=== PATIENT | female | born 1985 | race Caucasian/White ===

== ENCOUNTER 2020-07-28 12:07 | Emergency (ER) | payer OTHER ==
[2020-07-28] MEDS ORDERED: SODIUM CHLORIDE 0.9% 1,000 ML IV ONE (12:36)
--- NOTE | 2020-07-28 12:39 | ED ---
General Adult HPI - General Chief complaint: Vaginal Bleeding Stated complaint: , bleeding Time Seen by Provider: 07/28/20 12:29 Source: patient, family, RN notes reviewed Mode of arrival: ambulatory Limitations: no limitations - History of Present Illness Initial comments: 35-year-old female presents to the emergency room for a chief complaint of vaginal bleeding. Patient is a female with history of miscarriage 2 years ago. Patient reports that she believes she is 10 weeks . Her last period was May 16 and she had a positive test on July 14. Patient reports everything had been going well until today when she woke up and had some light spotting and light cramping in the lower abdomen. Patient states she became concerned she could be miscarrying. She denies any severe abdominal pain. Patient has not had an ultrasound as of yet. Patient has no other complaints at this time including shortness of breath, chest pain, abdominal pain, nausea or vomiting, headache, or visual changes. - Related Data Home Medications Medication Instructions Recorded Confirmed Ibuprofen [Motrin] 600 mg PO Q6H PRN 07/28/20 07/28/20 Allergies Allergy/AdvReac Type Severity Reaction Status Date / Time No Known Allergies Allergy Verified 07/28/20 13:35 Review of Systems ROS Statement: Those systems with pertinent positive or pertinent negative responses have been documented in the HPI. ROS Other: All systems not noted in ROS Statement are negative. Past Medical History Past Medical History: No Reported History History of Any Multi-Drug Resistant Organisms: None Reported Past Surgical History: No Surgical Hx Reported Past Psychological History: No Psychological Hx Reported Smoking Status: Current every day smoker Past Alcohol Use History: None Reported Past Drug Use History: None Reported General Exam Limitations: no limitations General appearance: alert, in no apparent distress Head exam: Present: atraumatic, normocephalic, normal inspection Eye exam: Present: normal appearance, PERRL, EOMI. Absent: scleral icterus, conjunctival injection, periorbital swelling ENT exam: Present: normal exam, mucous membranes moist Neck exam: Present: normal inspection, full ROM. Absent: tenderness, meningismus, lymphadenopathy Respiratory exam: Present: normal lung sounds bilaterally. Absent: respiratory distress, wheezes, rales, rhonchi, stridor Cardiovascular Exam: Present: regular rate, normal rhythm, normal heart sounds. Absent: systolic murmur, diastolic murmur, rubs, gallop, clicks GI/Abdominal exam: Present: soft, normal bowel sounds. Absent: distended, tenderness, guarding, rebound, rigid Neurological exam: Present: alert Course Vital Signs 07/28/20 12:20 Temperature 97 F L Pulse Rate 77 Respiratory 16 Rate Blood Pressure 110/65 O2 Sat by Pulse 100 Oximetry Medical Decision Making - Medical Decision Making Vitals are stable. CBC does show mild anemia however patient reports she has a history of this. She is unsure what her normal hemoglobin is. CMP unremarkable. Urinalysis unremarkable. Patient does have an hCG elevated at 36,000. However ultrasound does not reveal intrauterine . Pelvic exam did not reveal any adnexal or uterine tenderness. Patient has a history of molar . Patient does not have [employer] follow-up. Dr. Flynn spoke with Dr. Sharp, on-call [employer], who will be seeing the patient in the ER today. There is a yolk sac upon review, and Dr. Sharp recommends repeating hCG in 2 days and seeing her in the office on Monday. I did give miscarriage precautions. Recommended she return for any worsening symptoms which she is agreeable to. - Lab Data Result diagrams: 07/28/20 12:48 07/28/20 12:48 Lab Results 07/28/20 07/28/20 07/28/20 Range/Units 12:48 12:48 12:48 WBC 9.7 (3.8-10.6) k/uL RBC 3.47 L (3.80-5.40) m/uL Hgb 9.4 L (11.4-16.0) gm/dL Hct 28.9 L (34.0-46.0) % MCV 83.4 (80.0-100.0) fL MCH 27.1 (25.0-35.0) pg MCHC 32.5 (31.0-37.0) g/dL RDW 16.7 H (11.5-15.5) % Plt Count 415 (150-450) k/uL MPV 7.5 Neutrophils % 64 % Lymphocytes % 27 % Monocytes % 6 % Eosinophils % 1 % Basophils % 0 % Neutrophils # 6.2 (1.3-7.7) k/uL Lymphocytes # 2.6 (1.0-4.8) k/uL Monocytes # 0.6 (0-1.0) k/uL Eosinophils # 0.1 (0-0.7) k/uL Basophils # 0.0 (0-0.2) k/uL Anisocytosis Slight Sodium 137 (137-145) mmol/L Potassium 3.8 (3.5-5.1) mmol/L Chloride 104 (98-107) mmol/L Carbon Dioxide 27 (22-30) mmol/L Anion Gap 6 mmol/L BUN 14 (7-17) mg/dL Creatinine 0.56 (0.52-1.04) mg/dL Est GFR (CKD-EPI)AfAm >90 (>60 ml/min/1.73 sqM) Est GFR (CKD-EPI)NonAf >90 (>60 ml/min/1.73 sqM) Glucose 116 H (74-99) mg/dL Calcium 9.6 (8.4-10.2) mg/dL Total Bilirubin 0.2 (0.2-1.3) mg/dL AST 21 (14-36) U/L ALT 14 (4-34) U/L Alkaline Phosphatase 56 (38-126) U/L Total Protein 6.4 (6.3-8.2) g/dL Albumin 3.7 (3.5-5.0) g/dL HCG, Quant 50790.5 mIU/mL Urine Color Urine Appearance (Clear) Urine pH (5.0-8.0) Ur Specific [place] (1.001-1.035) Urine Protein (Negative) Urine Glucose (UA) (Negative) Urine Ketones (Negative) Urine Blood (Negative) Urine Nitrite (Negative) Urine Bilirubin (Negative) Urine Urobilinogen (<2.0) mg/dL Ur Leukocyte Esterase (Negative) Urine RBC (0-5) /hpf Urine WBC (0-5) /hpf Ur Squamous Epith Cells (0-4) /hpf Amorphous Sediment (None) /hpf Urine Bacteria (None) /hpf Trichomonas Ag (Rapid) (Negative) Blood Type O Positive Blood Type Recheck No Previous Record Bld Type Recheck Status [facility] ONLY 07/28/20 07/28/20 Range/Units 13:56 16:23 WBC (3.8-10.6) k/uL RBC (3.80-5.40) m/uL Hgb (11.4-16.0) gm/dL Hct (34.0-46.0) % MCV (80.0-100.0) fL MCH (25.0-35.0) pg MCHC (31.0-37.0) g/dL RDW (11.5-15.5) % Plt Count (150-450) k/uL MPV Neutrophils % % Lymphocytes % % Monocytes % % Eosinophils % % Basophils % % Neutrophils # (1.3-7.7) k/uL Lymphocytes # (1.0-4.8) k/uL Monocytes # (0-1.0) k/uL Eosinophils # (0-0.7) k/uL Basophils # (0-0.2) k/uL Anisocytosis Sodium (137-145) mmol/L Potassium (3.5-5.1) mmol/L Chloride (98-107) mmol/L Carbon Dioxide (22-30) mmol/L Anion Gap mmol/L BUN (7-17) mg/dL Creatinine (0.52-1.04) mg/dL Est GFR (CKD-EPI)AfAm (>60 ml/min/1.73 sqM) Est GFR (CKD-EPI)NonAf (>60 ml/min/1.73 sqM) Glucose (74-99) mg/dL Calcium (8.4-10.2) mg/dL Total Bilirubin (0.2-1.3) mg/dL AST (14-36) U/L ALT (4-34) U/L Alkaline Phosphatase (38-126) U/L Total Protein (6.3-8.2) g/dL Albumin (3.5-5.0) g/dL HCG, Quant mIU/mL Urine Color Light Yellow Urine Appearance Cloudy H (Clear) Urine pH 8.0 (5.0-8.0) Ur Specific [place] 1.010 (1.001-1.035) Urine Protein Negative (Negative) Urine Glucose (UA) Negative (Negative) Urine Ketones Negative (Negative) Urine Blood Trace H (Negative) Urine Nitrite Negative (Negative) Urine Bilirubin Negative (Negative) Urine Urobilinogen <2.0 (<2.0) mg/dL Ur Leukocyte Esterase Negative (Negative) Urine RBC 1 (0-5) /hpf Urine WBC 2 (0-5) /hpf Ur Squamous Epith Cells 1 (0-4) /hpf Amorphous Sediment Few H (None) /hpf Urine Bacteria Rare H (None) /hpf Trichomonas Ag (Rapid) Negative (Negative) Blood Type Blood Type Recheck Bld Type Recheck Status Disposition Clinical Impression: Elevated serum hCG, Vaginal bleeding Disposition: HOME SELF-CARE Condition: Good Instructions (If sedation given, give patient instructions): (ED) Additional Instructions: Please repeat hCG in 2 days and follow-up with Dr. Sharp. Return to the emergency room for any worsening symptoms such as worsening bleeding. Do not participate in intercourse or put anything in the vagina such as tampons. Is patient prescribed a controlled substance at d/c from ED?: No Referrals: Safia Sharp DO [Doctor of Osteopathic Medicine] - 1-2 days Time of Disposition: 17:06
[2020-07-28 13:20] LABS: Anisocytosis Slight; Basophils % (A) 0 %; Eosinophils # (A) 0.1 k/uL (0-0.7); Eosinophils % (A) 1 %; HCT 28.9 % (34.0-46.0); HGB 9.4 gm/dL (11.4-16.0); Lymphocytes # (A) 2.6 k/uL (1.0-4.8); Lymphocytes % (A) 27 %; MCH 27.1 pg (25.0-35.0); MCHC 32.5 g/dL (31.0-37.0); MCV 83.4 fL (80.0-100.0); Mean Platelet Volume 7.5; Monocytes # (A) 0.6 k/uL (0-1.0); Monocytes % (A) 6 %; Neutrophils # (A) 6.2 k/uL (1.3-7.7); Neutrophils % (A) 64 %; Platelet Count 415 k/uL (150-450); RBC 3.47 m/uL (3.80-5.40); RDW 16.7 % (11.5-15.5); WBC 9.7 k/uL (3.8-10.6)
[2020-07-28 13:21] LABS: ALT 14 U/L (4-34); AST 21 U/L (14-36); African American GFR (CKD) >90 (>60 ml/min/1.73 sqM); Albumin 3.7 g/dL (3.5-5.0); Alkaline Phosphatase 56 U/L (38-126); Anion Gap 6 mmol/L; Blood Urea Nitrogen 14 mg/dL (7-17); Calcium 9.6 mg/dL (8.4-10.2); Carbon Dioxide 27 mmol/L (22-30); Chloride 104 mmol/L (98-107); Glucose 116 mg/dL (74-99); Non-African American GFR(CKD) >90 (>60 ml/min/1.73 sqM); Potassium 3.8 mmol/L (3.5-5.1); Sodium 137 mmol/L (137-145); Total Bilirubin 0.2 mg/dL (0.2-1.3); Total Protein 6.4 g/dL (6.3-8.2)
--- NOTE | 2020-07-28 13:49 | US ---
EXAMINATION TYPE: Transabdominal DATE OF EXAM: 07/28/2020 1:35 PM COMPARISON: NONE CLINICAL HISTORY: bleeding. Spotting EXAM PERFORMED: Transvaginal (TV) and Transabdominal (TA) EXAM MEASUREMENTS: GESTATIONAL AGE / DATING Physician Established: Not yet established Dates by LMP: 05/16/2020 (10 weeks/3 days) EDC: 02/20/2021 Dates by First Scan: No previous this is first scan Dates by Current Scan for: (5 weeks/6 days) EDC: 03/24/2021 MATERNAL ANATOMY Uterus: 9.3 x 6.1 x 7.2 cm Right Ovary: 3.0 x 1.9 x 2.9 cm Left Ovary: 2.5 x 2.4 x 2.2 cm Post CDS / Adnexa: wnl Presence of free fluid: no Presence of corpus luteal cyst: Yes right Presence of subchorionic bleed: no GESTATION / SURVEY MSD: 1.61 cm (5 weeks/6 days) Yolk Sac (normal less than 6mm): 2 mm IUP: No IUP seen at this time Beta HcG (if available): Not available at this time IMPRESSION: Findings may represent an early , follow-up as indicated.
[2020-07-28 14:07] LABS: HCG,Quantitative Serum 36680.5 mIU/mL
[2020-07-28 14:23] LABS: Amorphous Sediment,Urine Few /hpf; Appearance,Urine Cloudy (Clear); Bacteria,Urine Rare /hpf; Bilirubin,Urine Negative (Negative); Blood,Urine Trace (Negative); Color,Urine Light Yellow; Glucose,Urine (UA) Negative (Negative); Ketones,Urine Negative (Negative); Leukocyte Esterase,Urine Negative (Negative); Nitrite,Urine Negative (Negative); Protein,Urine Negative (Negative); RBC,Urine 1 /hpf (0-5); Squamous Epithelial Cell,Urine 1 /hpf (0-4); Urobilinogen,Urine <2.0 mg/dL (<2.0); WBC,Urine 2 /hpf (0-5)
[2020-07-28 17:20] VITALS: BP 118/72; PULSE 70; RESP 18; TEMP 98
--- NOTE | 2020-07-28 18:47 | P.OBCN ---
History of Present Illness Consult date: 07/28/20 Requesting physician: Hardeep Flynn Reason for consult: early problem Chief complaint: vaginal bleeding History of present illness: this is a 35-year-old at unknown gestation that presented to the emergency department with complaints of vaginal bleeding. Patient was concerned as she had a history of a molar many years ago, and a recent miscarriage.. Patient has had a prior term delivery 18 years ago. patient states bleeding has been very minimal and she denies cramping. Patient states her last menstrual period was on 05/16 and it was a normal cycle lasting 5 days. she then had a positive urinary test on 07/14. she states she was trying for and this is a very wanted . Patient was evaluated in the emergency department quantitative beta-hCG was noted to be 36,000. Ultrasound was obtained in addition. Review of Systems Constitutional: Denies chills, Denies fatigue, Denies fever Ears, nose, mouth and throat: Denies headache Respiratory: Denies dyspnea Gastrointestinal: Reports nausea, Denies constipation, Denies diarrhea, Denies vomiting Genitourinary: Reports Past Medical History Past Medical History: No Reported History History of Any Multi-Drug Resistant Organisms: None Reported Past Surgical History: No Surgical Hx Reported Past Psychological History: No Psychological Hx Reported Smoking Status: Current every day smoker Past Alcohol Use History: None Reported Past Drug Use History: None Reported Medications and Allergies Home Medications Medication Instructions Recorded Confirmed Type Ibuprofen [Motrin] 600 mg PO Q6H PRN 07/28/20 07/28/20 History Allergies Allergy/AdvReac Type Severity Reaction Status Date / Time No Known Allergies Allergy Verified 07/28/20 13:35 Exam Osteopathic Statement: *. No significant issues noted on an osteopathic structural exam other than those noted in the History and Physical/Consult. Vital Signs Temp Pulse Resp BP Pulse Ox 07/28/20 17:00 98.0 F 70 18 118/72 99 07/28/20 12:20 97 F L 77 16 110/65 100 Intake and Output 07/28/20 07/28/20 07/28/20 06:59 14:59 22:59 Other: Weight 54.431 kg targeted physical exam was performed and state in general this a well-nourished well-developed female in no obvious distress, breathing is nonlabored, heart has a regular rate and rhythm, abdomen is soft Pelvic exam was performed by the emergency department PA which was benign in nature, no tenderness was noted, no vaginal bleeding. Results Result Diagrams: 07/28/20 12:48 07/28/20 12:48 Abnormal Lab Results - Last 24 Hours (Table) 07/28/20 07/28/20 07/28/20 Range/Units 12:48 12:48 13:56 RBC 3.47 L (3.80-5.40) m/uL Hgb 9.4 L (11.4-16.0) gm/dL Hct 28.9 L (34.0-46.0) % RDW 16.7 H (11.5-15.5) % Glucose 116 H (74-99) mg/dL Urine Appearance Cloudy H (Clear) Urine Blood Trace H (Negative) Amorphous Sediment Few H (None) /hpf Urine Bacteria Rare H (None) /hpf Assessment and Plan (1) Early stage of Status: Acute Code(s): Z34.90 - ENCNTR FOR SUPRVSN OF NORMAL , UNSP, UNSP TRIMESTER SNOMED Code(s): 252260780 (2) Vaginal bleeding Status: Acute Code(s): N93.9 - ABNORMAL UTERINE AND VAGINAL BLEEDING, UNSPECIFIED SNOMED Code(s): 074659950 Plan: this 35-year-old 4 para 10-1 at early gestation, presented to the ER with complaints of vaginal spotting. Patient was noted to be anxious regarding this as she has been trying and had a miscarriage about 1 year ago. Ultrasound was obtained to station sac and yolk sac were appreciated. No pole was appreciated. No adnexal masses were appreciated. Ultrasound results were discussed with the patient and her in detail. We'll plan to repeat quantitative hCG in 48 hours and see the patient back in the office on Monday. Bleeding precautions were discussed with the patient and she states understanding. All questions were answered.
== END 2020-07-28 17:20 | disposition home or self-care (01) ==
LOC: EC 12:07
DX: O20.9 Hemorrhage in early pregnancy, unspecified (principal); O99.011 Anemia complicating pregnancy, first trimester; D64.9 Anemia, unspecified; O99.331 Smoking (tobacco) complicating pregnancy, first trimester; F17.200 Nicotine dependence, unspecified, uncomplicated; Z87.59 Personal history of other complications of pregnancy, childbirth and the puerperium; Z3A.01 Less than 8 weeks gestation of pregnancy
CPT/HCPCS: 36415; 76801; 76817; 80053; 81001; 84702; 85025; 86900; 86901; 87491; 87591; 87808; 96360; 99284

== ENCOUNTER → 2020-07-30 | Outpatient (CLI) | payer SELFPAY | END | disposition home or self-care (01) | LOC: LABWHC1 13:11 | PROVIDERS: ATTEND Physician Assistant Medical | DX: O20.9 Hemorrhage in early pregnancy, unspecified (principal) | CPT/HCPCS: 36415; 84702 ==

== ENCOUNTER 2021-02-07 23:50 | Outpatient (CLI) | payer BC, OTHER ==
[2021-02-08 01:09] VITALS: BP 110/70; PULSE 85; RESP 16; TEMP 97.4
--- NOTE | 2021-02-11 11:30 | P.MSEPDOC ---
Presenting Problems - Arrival Data Date of Arrival on Unit: 02/07/21 Time of Arrival on Unit: 23:50 Mode of Transport: Wheelchair - Complaint OB-Reason for Admission/Chief Complaint: Other Comment: abdominal pain/tightening and headache Medical History - Information : 2 Para: 1 Term: 1 : 0 Abortions: Spontaneous or Elective: 0 Number of Living Children: 1 - Gestational Age Gestational Age by AMY (wks/days): 33 Weeks and 5 Days - History Comment: very limited care Review of Systems - Review of Systems Constitutional: No problems Breast: No problems ENT: No problems Cardiovascular: No problems Respiratory: No problems Gastrointestinal: No problems Genitourinary: No problems Musculoskeletal: No problems Neurological: No problems Skin: No problems Vital Signs - Temperature Temperature: 97.4 F Temperature Source: Temporal Artery Scan - Pulse Pulse Oximetery Pulse Rate: 85 Pulse Assessment Method: Pulse Oximetry - Respirations Respiratory Rate: 16 Oxygen Delivery Method: Room Air O2 Sat by Pulse Oximetry: 98 - Blood Pressure Right Arm Blood Pressure: 110/70 Blood Pressure Mean: 83 Blood Pressure Source: Automatic Cuff Medical Screen Scoring (Pre) - Cervical Exam Dilation: Exam Deferred Effacement: Exam Deferred Membranes: Intact - Uterine Contractions Frequency: N/A Duration: N/A Intensity: N/A - Maternal Vital Signs Maternal Temperature: N/A Signs of Preeclampsia: N/A Maternal Respirations: N/A - Maternal Trauma Maternal Trauma: N/A - Assessment - Baby A Baseline FHR: 130 Heart Rate - NICHD Category: Category I (Normal) = 0 NST: Reactive Position: N/A Station: N/A - Total Score - Baby A Total Score - Baby A: 0 - Total Score - Baby B Total Score - Baby B: 0 - Total Score - Baby C Total Score - Baby C: 0 - Level of Risk - Baby A Level of Risk - Baby A: Low (0-5) - Level of Risk - Baby B Level of Risk - Baby B: Low (0-5) - Level of Risk - Baby C Level of Risk - Baby C: Low (0-5) Physician Notification (Pre) - Physician Notified Physician Notified Date: 02/08/21 Physician Notified Time: 00:07 - Notification Comment Comment: Dr. Boland called, report given on maternal/ status, complaints of. abdominal pain and headache, plans for a home with limited care. FHTs 135. with moderate variability but NST not reactive yet. No contractions via TOCO or. palpation, abdomen soft to palpation. Vitals WNL with BP 110/70. Orders to discharge pt. home once NST is reactive with instructions about labor s/s. Disposition - Disposition OB Disposition: Discharge to home Discharge Date: 02/08/21 Discharge Time: 00:50 I agree with the RN Medical Screening Exam: Yes Case reviewed; plan agreed upon as documented in EMR&OBIX.: Yes Diagnosis: PAIN, UNSPECIFIED
== END 2021-02-08 00:50 | disposition home or self-care (01) ==
LOC: FBPOP 23:50
PROVIDERS: ATTEND Obstetrics & Gynecology
DX: O26.893 Other specified pregnancy related conditions, third trimester (principal); R10.9 Unspecified abdominal pain; R51.9 Headache, unspecified; Z3A.33 33 weeks gestation of pregnancy
CPT/HCPCS: 59025; G0463; 99213

== ENCOUNTER 2021-03-15 23:43 | Inpatient (IN) | payer BC, OTHER ==
[2021-03-15] MEDS ORDERED: SODIUM CHLORIDE 0.9% 500 ML 500 ML IV STA (23:55)
[2021-03-15] MEDS ORDERED: hydrALAZINE HCL 20 MG/ML 1 ML VIAL IVP STA (23:55)
[2021-03-15] MEDS ORDERED: SODIUM CHLORIDE 0.9% 1,000 ML IV STA (23:55)
--- NOTE | 2021-03-15 23:56 | ED ---
Recheck HPI - General Chief Complaint: Recheck/Abnormal Lab/Rx Stated Complaint: High BP, SOB Time Seen by Provider: 03/15/21 23:53 Source: patient, family, RN notes reviewed, old records reviewed Mode of arrival: ambulatory Limitations: no limitations - History of Present Illness Initial Comments: This is a 35-year-old female presenting for evaluation. Patient has recent delivery, . During blood pressure was high patient did have delivery of baby, patient has noticed increased swelling lately that she became even more concern for preeclampsia as she is known (hearing warning signs of things to look out for. Patient presents for which she states his eye believe I have preeclampsia. Swelling of lower extremity swelling of abdomen swelling of arms patient is resolving about no shortness of breath no chest pain no abdominal pain no significant MD Complaint: other (Evaluation regarding swelling of elevated blood pressure after delivery) -: days(s) Returns Today for: other (Persistently elevated blood pressure and swelling post ) Symptoms Since Prior Visit: no new symptoms Context: other (Patient continued become more concerned with symptoms) Associated Symptoms: none Treatments Prior to Arrival: other (none) - Related Data Home Medications Medication Instructions Recorded Confirmed Pnv No.95/Ferrous Fum/Folic AC 1 each PO DAILY 02/08/21 02/08/21 [ Multivitamin Tablet] Previous Rx's Medication Instructions Recorded Ibuprofen [Motrin] 600 mg PO Q6H PRN #40 tab 03/17/21 Labetalol [Trandate] 200 mg PO BID #60 tab 03/18/21 Allergies Allergy/AdvReac Type Severity Reaction Status Date / Time No Known Allergies Allergy Verified 02/08/21 00:25 Review of Systems ROS Statement: Those systems with pertinent positive or pertinent negative responses have been documented in the HPI. ROS Other: All systems not noted in ROS Statement are negative. Past Medical History Past Medical History: No Reported History History of Any Multi-Drug Resistant Organisms: None Reported Past Surgical History: No Surgical Hx Reported, Section Past Psychological History: No Psychological Hx Reported Smoking Status: Never smoker Past Alcohol Use History: None Reported Past Drug Use History: None Reported General Exam Limitations: no limitations General appearance: alert, in no apparent distress, anxious Head exam: Present: atraumatic, normocephalic, normal inspection Eye exam: Present: normal appearance, PERRL, EOMI. Absent: scleral icterus, conjunctival injection, periorbital swelling ENT exam: Present: normal exam, mucous membranes moist Neck exam: Present: normal inspection. Absent: tenderness, meningismus, lymphadenopathy Respiratory exam: Present: normal lung sounds bilaterally. Absent: respiratory distress, wheezes, rales, rhonchi, stridor Cardiovascular Exam: Present: normal rhythm, bradycardia, normal heart sounds. Absent: systolic murmur, diastolic murmur, rubs, gallop, clicks GI/Abdominal exam: Present: soft, normal bowel sounds. Absent: distended, tenderness, guarding, rebound, rigid Extremities exam: Present: normal inspection, full ROM, normal capillary refill. Absent: tenderness, pedal edema, joint swelling, calf tenderness Back exam: Present: normal inspection Neurological exam: Present: alert, oriented X3, CN II-XII intact Psychiatric exam: Present: normal affect, normal mood Skin exam: Present: warm, dry, intact, normal color. Absent: rash Course Vital Signs 03/15/21 03/16/21 03/16/21 23:44 00:25 01:00 Temperature 98.2 F Pulse Rate 50 L 53 L 62 Respiratory 18 16 18 Rate Blood Pressure 171/85 143/78 140/84 O2 Sat by Pulse 95 96 98 Oximetry 03/16/21 03/16/21 01:50 03:05 Temperature Pulse Rate 68 64 Respiratory 18 18 Rate Blood Pressure 140/89 136/82 O2 Sat by Pulse 97 98 Oximetry - Reevaluation(s) Reevaluation #1: Medical records reviewed Patient symptoms are improved significantly here in the ER Patient in no acute distress Patient informed of results and questions answered - Consultations Consultation #1: Spoke with Dr. Yates for OB who will see patient here in the hospital, recommends treatment for preeclampsia Medical Decision Making - Medical Decision Making 35 female DF for evaluation of elevated blood pressure abnormal lab values after delivery, . Patient has preeclampsia. To be admitted for OB to see - Lab Data Result diagrams: 03/17/21 05:36 03/16/21 00:16 Lab Results 03/16/21 03/16/21 03/16/21 Range/Units 00:16 00:16 00:16 WBC 8.6 (3.8-10.6) k/uL RBC 3.25 L (3.80-5.40) m/uL Hgb 10.8 L (11.4-16.0) gm/dL Hct 31.0 L (34.0-46.0) % MCV 95.4 (80.0-100.0) fL MCH 33.2 (25.0-35.0) pg MCHC 34.8 (31.0-37.0) g/dL RDW 13.6 (11.5-15.5) % Plt Count 281 (150-450) k/uL MPV 9.2 Neutrophils % 64 % Lymphocytes % 24 % Monocytes % 8 % Eosinophils % 2 % Basophils % 0 % Neutrophils # 5.5 (1.3-7.7) k/uL Lymphocytes # 2.0 (1.0-4.8) k/uL Monocytes # 0.7 (0-1.0) k/uL Eosinophils # 0.2 (0-0.7) k/uL Basophils # 0.0 (0-0.2) k/uL PT 9.9 (9.0-12.0) sec INR 0.9 (<1.2) Sodium (137-145) mmol/L Potassium (3.5-5.1) mmol/L Chloride (98-107) mmol/L Carbon Dioxide (22-30) mmol/L Anion Gap mmol/L BUN (7-17) mg/dL Creatinine (0.52-1.04) mg/dL Est GFR (CKD-EPI)AfAm (>60 ml/min/1.73 sqM) Est GFR (CKD-EPI)NonAf (>60 ml/min/1.73 sqM) Glucose (74-99) mg/dL Uric Acid (3.7-7.4) mg/dL Calcium (8.4-10.2) mg/dL Phosphorus (2.5-4.5) mg/dL Magnesium (1.6-2.3) mg/dL Total Bilirubin (0.2-1.3) mg/dL AST (14-36) U/L ALT (4-34) U/L Alkaline Phosphatase (38-126) U/L Lactate Dehydrogenase (313-618) U/L Total Protein (6.3-8.2) g/dL Albumin (3.5-5.0) g/dL Urine Color Light Yellow Urine Appearance Clear (Clear) Urine pH 6.5 (5.0-8.0) Ur Specific [place] 1.010 (1.001-1.035) Urine Protein Negative (Negative) Urine Glucose (UA) Negative (Negative) Urine Ketones Negative (Negative) Urine Blood Large H (Negative) Urine Nitrite Negative (Negative) Urine Bilirubin Negative (Negative) Urine Urobilinogen <2.0 (<2.0) mg/dL Ur Leukocyte Esterase Small H (Negative) Urine RBC 9 H (0-5) /hpf Urine WBC 4 (0-5) /hpf Ur Squamous Epith Cells <1 (0-4) /hpf Urine Bacteria Rare H (None) /hpf Urine Mucus Rare H (None) /hpf Blood Type Blood Type Recheck Bld Type Recheck Status Antibody Screen Spec Expiration Date 03/16/21 03/16/21 03/16/21 Range/Units 00:16 00:16 00:16 WBC (3.8-10.6) k/uL RBC (3.80-5.40) m/uL Hgb (11.4-16.0) gm/dL Hct (34.0-46.0) % MCV (80.0-100.0) fL MCH (25.0-35.0) pg MCHC (31.0-37.0) g/dL RDW (11.5-15.5) % Plt Count (150-450) k/uL MPV Neutrophils % % Lymphocytes % % Monocytes % % Eosinophils % % Basophils % % Neutrophils # (1.3-7.7) k/uL Lymphocytes # (1.0-4.8) k/uL Monocytes # (0-1.0) k/uL Eosinophils # (0-0.7) k/uL Basophils # (0-0.2) k/uL PT (9.0-12.0) sec INR (<1.2) Sodium 137 (137-145) mmol/L Potassium 4.9 (3.5-5.1) mmol/L Chloride 109 H (98-107) mmol/L Carbon Dioxide 21 L (22-30) mmol/L Anion Gap 7 mmol/L BUN 13 (7-17) mg/dL Creatinine 0.45 L (0.52-1.04) mg/dL Est GFR (CKD-EPI)AfAm >90 (>60 ml/min/1.73 sqM) Est GFR (CKD-EPI)NonAf >90 (>60 ml/min/1.73 sqM) Glucose 93 (74-99) mg/dL Uric Acid 4.3 (3.7-7.4) mg/dL Calcium 8.8 (8.4-10.2) mg/dL Phosphorus 3.6 (2.5-4.5) mg/dL Magnesium 1.7 (1.6-2.3) mg/dL Total Bilirubin 0.6 (0.2-1.3) mg/dL AST 50 H (14-36) U/L ALT 35 H (4-34) U/L Alkaline Phosphatase 78 (38-126) U/L Lactate Dehydrogenase 1083 H (313-618) U/L Total Protein 6.2 L (6.3-8.2) g/dL Albumin 3.2 L (3.5-5.0) g/dL Urine Color Urine Appearance (Clear) Urine pH (5.0-8.0) Ur Specific [place] (1.001-1.035) Urine Protein (Negative) Urine Glucose (UA) (Negative) Urine Ketones (Negative) Urine Blood (Negative) Urine Nitrite (Negative) Urine Bilirubin (Negative) Urine Urobilinogen (<2.0) mg/dL Ur Leukocyte Esterase (Negative) Urine RBC (0-5) /hpf Urine WBC (0-5) /hpf Ur Squamous Epith Cells (0-4) /hpf Urine Bacteria (None) /hpf Urine Mucus (None) /hpf Blood Type O Positive Blood Type Recheck O Pos Bld Type Recheck Status No Antibody Screen NEGATIVE Spec Expiration Date 03/19/2021 4659 - EKG Data -: EKG Interpreted by Me (EKG is sinus bradycardia 50 by mouth 104 QRS 86 QTc 420) Disposition Clinical Impression: Preeclampsia Disposition: ADMITTED IP TO THIS HOSP Condition: Fair Is patient prescribed a controlled substance at d/c from ED?: No
[2021-03-16] MEDS ORDERED: MORPHINE SULFATE 4 MG/ML SYRINGE IVP STA (00:11)
[2021-03-16] MEDS: MAGNESIUM SULFATE-D5W PMX 1 GM in DEXTROSE/WATER 1 100ML.BAG IVPB SCH ×2 (00:25→01:42)
[2021-03-16 00:56] LABS: Basophils % (A) 0 %; Eosinophils # (A) 0.2 k/uL (0-0.7); Eosinophils % (A) 2 %; HGB 10.8 gm/dL (11.4-16.0); Lymphocytes % (A) 24 %; MCH 33.2 pg (25.0-35.0); MCHC 34.8 g/dL (31.0-37.0); MCV 95.4 fL (80.0-100.0); Mean Platelet Volume 9.2; Monocytes # (A) 0.7 k/uL (0-1.0); Monocytes % (A) 8 %; Neutrophils # (A) 5.5 k/uL (1.3-7.7); Neutrophils % (A) 64 %; Platelet Count 281 k/uL (150-450); RBC 3.25 m/uL (3.80-5.40); RDW 13.6 % (11.5-15.5); WBC 8.6 k/uL (3.8-10.6)
[2021-03-16 01:03] LABS: Appearance,Urine Clear (Clear); Bacteria,Urine Rare /hpf; Bilirubin,Urine Negative (Negative); Blood,Urine Large (Negative); Color,Urine Light Yellow; Glucose,Urine (UA) Negative (Negative); Ketones,Urine Negative (Negative); Leukocyte Esterase,Urine Small (Negative); Mucus,Urine Rare /hpf; Nitrite,Urine Negative (Negative); PH, Urine 6.5 (5.0-8.0); Protein,Urine Negative (Negative); RBC,Urine 9 /hpf (0-5); Squamous Epithelial Cell,Urine <1 /hpf (0-4); Urobilinogen,Urine <2.0 mg/dL (<2.0); WBC,Urine 4 /hpf (0-5)
[2021-03-16 01:10] LABS: INR 0.9 (<1.2); Prothrombin Time 9.9 sec (9.0-12.0)
[2021-03-16 01:21] LABS: ALT 35 U/L (4-34); AST 50 U/L (14-36); African American GFR (CKD) >90 (>60 ml/min/1.73 sqM); Albumin 3.2 g/dL (3.5-5.0); Alkaline Phosphatase 78 U/L (38-126); Anion Gap 7 mmol/L; Blood Urea Nitrogen 13 mg/dL (7-17); Calcium 8.8 mg/dL (8.4-10.2); Carbon Dioxide 21 mmol/L (22-30); Chloride 109 mmol/L (98-107); Glucose 93 mg/dL (74-99); Magnesium 1.7 mg/dL (1.6-2.3); Non-African American GFR(CKD) >90 (>60 ml/min/1.73 sqM); Phosphorus 3.6 mg/dL (2.5-4.5); Potassium 4.9 mmol/L (3.5-5.1); Sodium 137 mmol/L (137-145); Total Bilirubin 0.6 mg/dL (0.2-1.3); Total Protein 6.2 g/dL (6.3-8.2); Uric Acid 4.3 mg/dL (3.7-7.4)
--- NOTE | 2021-03-16 01:31 | XR ---
EXAMINATION TYPE: XR chest 2V DATE OF EXAM: 03/16/2021 COMPARISON: NONE HISTORY: Short of breath TECHNIQUE: 2 views FINDINGS: Heart and mediastinum are normal. Lungs are clear. Costophrenic angles are clear. There are no hilar masses. Bony thorax is intact. IMPRESSION: Normal chest.
[2021-03-16] MEDS: MORPHINE SULFATE 4 MG/ML SYRINGE IVP PRN ×2 (01:43→01:46)
[2021-03-16] MEDS ORDERED: MAGNESIUM SULFATE-WATER PMX 4 GM in WATER FOR INJECTION 1 100ML.BAG IVPB ONE (04:44)
[2021-03-16] MEDS ORDERED: CALCIUM GLUCONATE 1 GM/10 ML VIAL IV PRN (05:00)
[2021-03-16] MEDS: LACTATED RINGERS 1,000 ML IV SCH ×3 (05:10→18:07)
[2021-03-16] MEDS: IBUPROFEN 600 MG TAB PO PRN ×3 (05:12→17:11)
[2021-03-16] MEDS: LABETALOL 100 MG TAB PO SCH ×3 (05:15→20:58)
[2021-03-16] MEDS: MAGNESIUM SULFATE-WATER PMX 20 GM in WATER FOR INJECTION 1 500ML.BAG IV SCH ×2 (05:24→15:46)
--- NOTE | 2021-03-16 06:35 | P.HPOB ---
History of Present Illness H&P Date: 03/16/21 Chief Complaint: Headache, recent vaginal delivery This patient is a 35-year-old 2 para 2 female status post delivery of her second viable on March 10 at [facility]. I do not have records from that delivery, however the patient indicates that she was induced at 38 weeks because of excess fluid and the baby was measuring small. Patient did have a visit here in triage in January and indicated at that time that her plans were for a home delivery. At some point this plan must of changed because she was induced by a Dr. Giraldo at [facility]. Patient states that on March 14 she began developing a headache. She did not contact her raul sician at that time. She subsequent presented to [facility] emergency department last evening for evaluation. Patient's blood pressure on admission was 178/85. Blood work showed mild elevation of her AST and ALTs and LDH. These findings were consistent with preeclampsia. Patient states that her blood pressure was elevated on one occasion during that admission but does not recall if she had any blood work done. She had a previous delivery and states she had no blood pressure problems at that time as well. Emergency department contacted me and I recommended admission for magnesium sulfate treatment and blood pressure management. Review of Systems Constitutional: Reports as per HPI Ears, nose, mouth and throat: Reports headache Past Medical History Past Medical History: No Reported History History of Any Multi-Drug Resistant Organisms: None Reported Past Surgical History: No Surgical Hx Reported, Section Past Anesthesia/Blood Transfusion Reactions: No Reported Reaction Past Psychological History: No Psychological Hx Reported Smoking Status: Former smoker Past Alcohol Use History: None Reported Past Drug Use History: None Reported Medications and Allergies Home Medications Medication Instructions Recorded Confirmed Type Pnv No.95/Ferrous Fum/Folic AC 1 each PO DAILY 02/08/21 02/08/21 History [ Multivitamin Tablet] Allergies Allergy/AdvReac Type Severity Reaction Status Date / Time No Known Allergies Allergy Verified 02/08/21 00:25 Exam Vital Signs Temp Pulse Pulse Pulse Resp BP BP 03/16/21 06:15 60 16 03/16/21 05:29 66 16 03/16/21 05:14 62 16 03/16/21 04:59 58 L 18 03/16/21 04:44 58 L 18 03/16/21 04:30 97.8 F 64 63 18 140/80 03/16/21 03:05 64 18 136/82 03/16/21 01:50 68 18 140/89 03/16/21 01:00 62 18 140/84 03/16/21 00:25 53 L 16 143/78 03/15/21 23:44 98.2 F 50 L 18 171/85 BP BP Pulse Ox 03/16/21 06:15 152/85 03/16/21 05:29 139/71 98 03/16/21 05:14 136/73 98 03/16/21 04:59 140/74 98 03/16/21 04:44 140/74 98 03/16/21 04:30 153/85 96 03/16/21 03:05 98 03/16/21 01:50 97 03/16/21 01:00 98 03/16/21 00:25 96 03/15/21 23:44 95 Intake and Output 03/15/21 03/15/21 03/16/21 14:59 22:59 06:59 Output Total 1000 Balance -1000 Output: Urine 1000 Other: Weight 68.039 kg Results Result Diagrams: 03/16/21 00:16 03/16/21 00:16 Abnormal Lab Results - Last 24 Hours (Table) 03/16/21 03/16/21 03/16/21 Range/Units 00:16 00:16 00:16 RBC 3.25 L (3.80-5.40) m/uL Hgb 10.8 L (11.4-16.0) gm/dL Hct 31.0 L (34.0-46.0) % Chloride 109 H (98-107) mmol/L Carbon Dioxide 21 L (22-30) mmol/L Creatinine 0.45 L (0.52-1.04) mg/dL AST 50 H (14-36) U/L ALT 35 H (4-34) U/L Lactate Dehydrogenase (313-618) U/L Total Protein 6.2 L (6.3-8.2) g/dL Albumin 3.2 L (3.5-5.0) g/dL Urine Blood Large H (Negative) Ur Leukocyte Esterase Small H (Negative) Urine RBC 9 H (0-5) /hpf Urine Bacteria Rare H (None) /hpf Urine Mucus Rare H (None) /hpf 03/16/21 Range/Units 00:16 RBC (3.80-5.40) m/uL Hgb (11.4-16.0) gm/dL Hct (34.0-46.0) % Chloride (98-107) mmol/L Carbon Dioxide (22-30) mmol/L Creatinine (0.52-1.04) mg/dL AST (14-36) U/L ALT (4-34) U/L Lactate Dehydrogenase 1083 H (313-618) U/L Total Protein (6.3-8.2) g/dL Albumin (3.5-5.0) g/dL Urine Blood (Negative) Ur Leukocyte Esterase (Negative) Urine RBC (0-5) /hpf Urine Bacteria (None) /hpf Urine Mucus (None) /hpf Assessment and Plan Assessment: This is a 35-year-old 2 para 2 female status post section on March 10 at another institution who presents to this hospital with complaints of headache and is found to have elevated blood pressure and elevated liver tests consistent with preeclampsia Plan is magnesium sulfate prophylaxis for seizure, begin oral antihypertensives, and serial blood work. (1) Pre-eclampsia, delivered Current Visit: Yes Status: Acute Code(s): O14.94 - UNSPECIFIED PRE- ECLAMPSIA, COMPLICATING CHILDBIRTH SNOMED Code(s): 694511521
[2021-03-16] MEDS: ACETAMINOPHEN TAB 325 MG TAB PO PRN ×2 (08:24→14:30)
[2021-03-16] MEDS ORDERED: HYDROcodone/APAP 7.5-325MG 1 EACH TAB PO ONE (12:33)
[2021-03-16] MEDS: HYDROcodone/APAP 7.5-325MG 1 EACH TAB PO PRN (18:11)
[2021-03-17] MEDS: IBUPROFEN 600 MG TAB PO PRN ×4 (00:02→20:34)
[2021-03-17] MEDS: LACTATED RINGERS 1,000 ML IV SCH (00:04)
[2021-03-17] MEDS: HYDROcodone/APAP 7.5-325MG 1 EACH TAB PO PRN (01:10)
[2021-03-17] MEDS: MAGNESIUM SULFATE-WATER PMX 20 GM in WATER FOR INJECTION 1 500ML.BAG IV SCH (01:11)
[2021-03-17 06:17] LABS: Basophils % (A) 0 %; Eosinophils # (A) 0.2 k/uL (0-0.7); Eosinophils % (A) 2 %; HCT 30.3 % (34.0-46.0); HGB 10.9 gm/dL (11.4-16.0); Lymphocytes # (A) 1.6 k/uL (1.0-4.8); Lymphocytes % (A) 17 %; MCH 33.8 pg (25.0-35.0); MCV 93.9 fL (80.0-100.0); Mean Platelet Volume 7.8; Monocytes # (A) 0.5 k/uL (0-1.0); Monocytes % (A) 6 %; Neutrophils # (A) 6.9 k/uL (1.3-7.7); Neutrophils % (A) 75 %; Platelet Count 287 k/uL (150-450); Poikilocytosis Slight; RBC 3.22 m/uL (3.80-5.40); RDW 13.1 % (11.5-15.5); WBC 9.2 k/uL (3.8-10.6)
[2021-03-17] MEDS ORDERED: ONDANSETRON 4 MG TAB PO PRN (06:29)
--- NOTE | 2021-03-17 06:31 | P.PN ---
Progress Note - Text Progress Note Date: 03/17/21 Hospital day #2. Patient is resting overnight and blood pressures are much improved. Magnesium discontinued this morning and will continue oral labetalol, check her labs, and discharge home after breakfast to follow up with her primary director machine Dr. Giraldo
[2021-03-17 06:34] LABS: Bilirubin,Unconjugated 0.2 mg/dL (0.0-1.1); Total Bilirubin 0.2 mg/dL (0.2-1.3); Total Protein 5.6 g/dL (6.3-8.2)
--- NOTE | 2021-03-17 06:46 | P.PN ---
Progress Note - Text Progress Note Date: 03/17/21 Patient is continuing to have a headache although her blood pressures are normal and her liver tests are normal. Patient does report that it is relieved when she lays flat therefore I am going to have anesthesiology see this patient prior to discharge to evaluate for possible spinal headache.
[2021-03-17] MEDS: LABETALOL 100 MG TAB PO SCH (07:59)
[2021-03-17] MEDS ORDERED: LABETALOL 100 MG TAB PO STA (10:38)
[2021-03-17] MEDS: ACETAMINOPHEN TAB 325 MG TAB PO PRN (16:56)
[2021-03-17] MEDS: LABETALOL 200 MG TAB PO SCH (20:34)
[2021-03-18] MEDS: ACETAMINOPHEN TAB 325 MG TAB PO PRN (00:21)
[2021-03-18] MEDS: LACTATED RINGERS 1,000 ML IV SCH (01:08)
[2021-03-18] MEDS: MAGNESIUM SULFATE-WATER PMX 20 GM in WATER FOR INJECTION 1 500ML.BAG IV SCH (01:14)
[2021-03-18] MEDS: IBUPROFEN 600 MG TAB PO PRN (04:15)
--- NOTE | 2021-03-18 06:34 | P.PN ---
Progress Note - Text Progress Note Date: 03/18/21 She'll day #3. Patient's blood pressure went up yesterday morning and therefore her discharge was stopped. I increased her labetalol to 200 mg by mouth twice a day. She does intermittently get a headache however this appears to be her "normal headache". This morning she states that she's feeling well. She did rest overnight. Blood pressures for the most part are markedly improved she did have 1 elevated 1 in 4 AM. She does desire to go home at this time. My impression that this appears to be preeclampsia that is resolving. Blood pressures. Blood pressures appear controlled on this dose of labetalol therefore I feel she stable for discharge home follow up with her primary carpet cleaner, Dr. Giraldo.
--- NOTE | 2021-03-18 06:38 | P.DS ---
Providers Date of admission: 03/16/21 02:16 Expected date of discharge: 03/18/21 Attending physician: Kang Yates Primary care physician: Physician Nonstaff - Discharge Diagnosis(es) (1) Pre-eclampsia, delivered Current Visit: Yes Status: Acute Hospital Course: Please see dictated H&P for intimate details of this patient's admission. Brief summary this 35-year-old 3 para 1 female status post section on March 10 at another facility who presented to this hospital with complaints of headache found to have elevated blood pressures and liver function tests consistent with preeclampsia. Patient was placed on magnesium sulfate and antihypertensives were started. Patient had to have her dose of labetalol increased however blood pressure was controlled on oral labetalol 200 mg by mouth twice a day. Patient does have a history of chronic headaches with acute exacerbations no neurologic findings. On hospital day #3 patient was resting fairly well blood pressures for the most part controlled good on this dose patient's felt stable for discharge home follow up as an outpatient. Patient was instructed specifically to contact her primary resistor inspector whom she needs to see anyways for an incision check early next week. Patient Condition at Discharge: Fair Plan - Discharge Summary New Discharge Prescriptions: New Ibuprofen [Motrin] 600 mg PO Q6H PRN #40 tab PRN Reason: pain Labetalol [Trandate] 200 mg PO BID #60 tab No Action Pnv No.95/Ferrous Fum/Folic AC [ Multivitamin Tablet] 1 each PO DAILY Discharge Medication List Pnv No.95/Ferrous Fum/Folic AC [ Multivitamin Tablet] 1 each PO DAILY 02/08/21 [History] Ibuprofen [Motrin] 600 mg PO Q6H PRN #40 tab 03/17/21 [Rx] Labetalol [Trandate] 200 mg PO BID #60 tab 03/18/21 [Rx] Follow up Appointment(s)/Referral(s): Nonstaff,Physician [Primary Care Provider] - 1 Week (Dr. Giraldo at [facility]) Patient Instructions/Handouts: Preeclampsia and Eclampsia After Delivery (GEN) Activity/Diet/Wound Care/Special Instructions: Continue routine postoperative care. No heavy lifting or strenuous activities. No intercourse or anything per vagina. Please contact your primary resistor inspector for a follow-up appointment within one week to have her blood pressure checked. Discharge Disposition: HOME SELF-CARE
[2021-03-18] MEDS: LABETALOL 200 MG TAB PO SCH (09:05)
[2021-03-18 09:08] VITALS: BP 163/82; PULSE 55; RESP 16; TEMP 96.8
== END 2021-03-18 09:15 | disposition home or self-care (01) | DRG 776 ==
LOC: EC 23:43 → 5NMEDONC 03-16 02:16 → 4FBP 03-16 04:54
PROVIDERS: ADMIT Obstetrics & Gynecology; ATTEND Obstetrics & Gynecology
DX: O14.95 Unspecified pre-eclampsia, complicating the puerperium (principal)
CPT/HCPCS: 36415; 71046; 80053; 80076; 81001; 83615; 83735; 84100; 84550; 85025; 85610; 86850; 86900; 86901; 93005; 96365; 96375; 96376; 99285